=== PATIENT | female | born 1985 | race Caucasian/White ===

== ENCOUNTER 2020-09-13 17:34 | Outpatient (CLI) | payer OTHER, SELFPAY | END 2020-09-13 17:35 | disposition home or self-care (01) | LOC: ANHCOVIDVC 17:34 | PROVIDERS: PCP Family Medicine | DX: Z23 Encounter for immunization (principal) | CPT/HCPCS: 0001A; 91300 ==

== ENCOUNTER 2020-10-04 17:31 | Outpatient (CLI) | payer OTHER, SELFPAY | END 2020-10-04 17:32 | disposition home or self-care (01) | LOC: ANHCOVIDVC 17:32 | PROVIDERS: PCP Family Medicine | DX: Z23 Encounter for immunization (principal) | CPT/HCPCS: 0002A; 91300 ==

== ENCOUNTER 2024-11-04 11:18 | Outpatient (CLI) | payer OTHER, SELFPAY ==
--- NOTE | ~2024-11-04 | XR_ITS ---
EXAM: XR ankle RT min 3V DATE: 11/04/2024 11:31 HISTORY: M25.571 - Pain in right ankle and joints of right foot . COMPARISON: None available. FINDINGS: Normal mineralization. Cortical irregularity along the lateral aspect of the talus. Small ossific fragment at the tip of the malleolus. No lytic or blastic lesion. Mild degenerative change of the tibiotalar joint. Plantar enthesopathy. No erosion or periosteal change. Lateral and anterior so ft tissue swelling. Small ankle joint effusion. IMPRESSION: Small ossific fragment at the tip of the medial malleolus may come may represent an acute or chronic avulsion fracture. Cortical regularity along the lateral talus may represent an acute lateral talar process fracture. Reviewed, dictated and finalized at [facility]. IMPRESSION: Small ossific fragment at the tip of the medial malleolus may come may represen t an acute or chronic avulsion fracture. Cortical regularity along the lateral talus may represent an acute lateral obey r process fracture.
--- OUTSIDE RECORDS SUMMARY | 2024-11-04 12:47 | XMS_ITS | Encounter Summary ---
Author Organization [facility] Healthcare Address [address] [place] [address] Care Team Providers Care Towel Rolling Machine Operator Name Role Phone Troy Spivey MD Primary Care Provider [phone] [phone] Encounter Details Date Type Department Care Team (Late st Contact Info) Description 04/07/2024 [facility] [address] [place] [phone] Debo Jenkins MA Well woman exam (Primary Dx); Screening for human papillomavirus; Screening for cervical cancer Social History Tobacco Use Types Packs/Day Years Used Date Smoking Tobacco: Never Smokeless Tobacco: Never AUDIT-C Answer Date Recorded Q1: How often do you have a drink containing alc ohol? Monthly or less 02/27/2024 Q2: How many drinks containi ng alcohol do you have on a typical day when you are drinking? 1 or 2 02/27/2024 Q3: How often do you have si x or more drinks on one occasion? Less than monthly 02/27/2024 PHQ-2 Answer Date Recorded PHQ-2 Total Score (If total score is 3 or more points, staff should administer the PHQ-9) 0 09/18/2023 Comments No Sex and Gender Information Value Date Recorded Sex Assigned at Not on file Legal Sex Female 2:49 AM SENIOR ANALYTICAL CHEMIST Gender Identity Female 03/24/2021 7:40 PM CDT Sexual Orientation Straight 03/24/2021 7: 40 PM CDT documented as of this encounter Plan of Treatment Not on file documented as of this encounter Visit Diagnoses Diagnosis Well woman exam- Primary Routine general medical examination at a health care facility Screening for human papillomavirus Special screening examination for human papillomavirus (HPV) Screening for cervical cancer Screening for malignant neoplasm of the cervix documented in this encounter Care Teams Towel Rolling Machine Operator Relationship Specialty Start Date End Date Troy Spivey MD PCP - General Family Medicine 01/22/23 documented as of this encounter
--- OUTSIDE RECORDS SUMMARY | 2024-11-04 12:47 | XMS_ITS | Clinical Summary ---
Author Organization [facility] Address [address] [place] [address] Phone Care Team Providers Care Lab Specialist Name Role Phone Troy Spivey MD Primary Care Provider [phone] Allergies No known active allergies Medications topiramate (TOPAMAX) 50 mg tablet Take 50 mg by mouth daily. Active desogestrel-eth inyl estradiol (ISIBLOOM ORAL) Take by mouth. Active prednisoLONE (PRELONE) 15 mg/5 mL solution Take 5 mL by mouth daily. Active brimonidine-sabine olol (COMBIGAN) 0.2-0.5 % solution 1 Drop every 12 hours. Active timolol (TIMOPTIC-XE) 0.5 % Gel Forming Solution INSTILL 1 DROP IN RIGHT EYE EVERY DAY 03/07/2021 Active Active Problems No known active problems Encounters Date Type Department Care Team Description 10/21/2024 External Device Data [facility] ABSTRACTION Provider, Abstract 10/07/2024 External Device Data [facility] ABSTRACTION Provider, Abstract 10/07/2024 External Device Data [facility] ABSTRACTION Provider, Abstract 10/07/2024 External Device Data [facility] ABSTRACTION Provider, Abstract 09/17/2024 External Device Data [facility] ABSTRACTION Provider, Abstract 09/16/2024 External Device Data [facility] ABSTRACTION Provider, Abstract 09/13/2024 External Device Data [facility] ABSTRACTION Provider, Abstract 09/12/2024 External Device Data [facility] ABSTRACTION Provider, Abstract 09/09/2024 External Device Data [facility] ABSTRACTION Provider, Abstract 09/02/2024 External Device Data [facility] ABSTRACTION Provider, Abstract 09/02/2024 External Device Data [facility] ABSTRACTION Provider, Abstract from Last 3 Months Social History Tobacco Use Types Packs/Day Years Used Date Smoking Tobacco: Never Smokeless Tobacco: Never Alcohol Use Standard Drinks/Week Comments Yes 0 (1 standard drink = 0.6 oz pur e alcohol) socially Feeling Safe Answer Date Recorded Are you in a relationship wi th someone who hurts you emotionally and/or physically? No 07/10/2024 Comments No Sex and Gender Information Value Date Recorded Sex Assigned at Not on file Legal Sex Female 11:21 PM CDT Gender Identity Not on file Sexual Orientation Not on file Last Filed Vital Signs Vital Sign Reading Time Taken Comments Blood Pressure 128/76 07/10/2024 3:25 AM RN HOME CARE Pulse 77 07/10/2024 3:25 AM RN HOME CARE Temperature 36.4 C (97.5 F) 07/10/2024 12:43 AM RN HOME CARE Respiratory Rate 14 07/10/2024 3:25 AM RN HOME CARE Oxygen Saturation 100% 07/10/2024 3:25 AM RN HOME CARE Inhaled Oxygen Concentration - - Weight 90.7 kg (200 lb) 07/10/2024 12:43 AM RN HOME CARE Height 160 cm (5' 3 ) 07/10/2024 12:43 AM RN HOME CARE Body Mass Index 35.43 07/10/2024 12:43 AM RN HOME CARE Plan of Treatment Health Maintenance Due Date Last Done Comments Pre-Diabetes and Diabetes Screening 1987 DTAP/TDAP/TD VACCINES (1 - Tdap) 2006 HEPATITIS B VACCINES (1 of 3 - 19+ 3-dose series) 2006 HPV/Cotest (21-29) 2008 CERVICAL CANCER SCREENING 2017 HPV/Cotest (30-65) 2017 PAP SMEAR 2017 INFLUENZA VACCINE (#1) 2024 2, 05/01/2021 COVID-19 Vaccine (2023- season) 2024 06/26/2021, 10/04/2020, 09/13/2020 HPV VACCINES Aged Out No longer eligi ble based on patient's age to complete this topic Insurance [facility] Care Teams Lab Specialist Relationship Specialty Start Date End Date Troy Spivey MD PCP - General Family Practice 04/18/18
--- OUTSIDE RECORDS SUMMARY | 2024-11-04 12:47 | XMS_ITS | Referral Summary ---
Author Organization [facility] Address [address] [place] [address] Care Team Providers Care Electrician Helper Powerhouse Name Role Phone Troy Spivey MD Primary Care Provider [phone] Encounters Date Type Department Care Team Description 10/28/2024 [facility] [address] [place] [address] Spring Christiansen MD Leukocytosis, unspecified type (Primary Dx) 10/27/2024 Results [facility] at [address] [place] [address] Spring Christiansen MD 10/24/2024 3:30 PM CDT Lab [address] [place] [address] Abnormal uterine bleeding (AUB) 10/24/2024 3:15 PM CDT Office Visit [facility] [address] [place] [address] Spring Christiansen MD Abnormal uterine bleeding (AUB) (Primary Dx) 10/24/2024 2:00 PM CDT Clinical Support [facility] [address] [place] [address] Irregular menses (Primary Dx) 10/09/2024 Orders Only [facility] [address] [address] Spring Christiansen MD 09/24/2024 8:00 AM CDT Office Visit [facility] at [address] [place] [address] Johnie Olson MD Class 2 obesity due to excess calories without serious comorbidity with body mass index (BMI) of 35.0 to 35.9 in adult (Primary Dx) from Last 3 Months Allergies No known active allergies Medications rizatriptan SILVER MINER BLASTING (MAXALT-SILVER MINER BLASTING) 10 mg disintegrating tabletIndications :Migraine Take 1 tablet (10 mg total) by mouth once as needed for migraine May repeat in 2 hours if unresolved. Do not exceed 30 mg in 24 hours. 9 tablet 11 05/18/20 23 Active phentermine (ADIPEX-P) 37.5 mg tabletIndications :Class 2 obesity due to excess calories without serious comorbidity with body mass index (BMI) of 35.0 to 35.9 in adult Take 1 tablet (37.5 mg total) by mouth daily before breakfast 90 tablet 1 09/25/19 25 025 Active topiramate (TOPAMAX) 50 mg tabletIndications :Class 2 obesity due to excess calories without serious comorbidity with body mass index (BMI) of 35.0 to 35.9 in adult Take 1 tablet (50 mg total) by mouth 2 (two) times a day 60 tablet 2 09/25/19 25 025 Active medroxyPROGESTERo ne (PROVERA) 10 mg tablet Take 1 tablet (10 mg total) by mouth daily for 10 days 10 tablet 10/10/19 25 025 Discontinued Active Problems Problem Noted Date Diagnosed Date Other acquired deformities of left foot 06/09/20 24 Other acquired deformities of right foot 024 Valgus deformity of great toe 06/09/2024 Class 2 obesity due to exces s calories without serious comorbidity with body mass index (BMI) of 36.0 to 36.9 in adult 06/09/2024 Overview (06/09/2024): Chronic. Uncontrolled. Goal:under 200lb -> 160lb Cont. Phentermine. Recommend Sunday's Seminar. Dry eye syndrome of both eyes 10/23/2023 Assessment & Plan (10/23/2023 9:58 AM CDT): Rec pfats TID+, call if ni/worsening sx Abnormal weight gain 09/18/2023 Uveitis 01/17/2023 Assessment & Plan (07/30/2024 11:02 AM CHEMICAL LABORATORY CHIEF): Has been noticing some worsening vision and perhaps some achiness more profound in the right than the left over the past month or so. Examination appears fairly stable, color photographs again appear stable as well. Previously evaluated for uveitis, however systemic steroids have not change the course of her disease. 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 She was referred for evaluation at the [facility], who stated no available treatment or management options at this time. If symptoms are to worsen, she was told they can consider intravitreal steroid implant. She has some new symptoms however her exam is very reassuring. We discussed the possibility of proceeding with fluorescein angiography, but considering the reassuring exam is and color photography we have agreed observation today. I believe some of her symptoms are due to her cataract in the right eye, fortunately this is not impeding her activities of daily living at this time, and we have agreed observation. Regarding the achiness, she tried some preservative-free artificial tears, use them once a day, I have encouraged her to try using the preservative-free artificial tears more frequently perhaps every 2 hours or so to see if this brings her some relief. She was scheduled to return to see us in April, I have encouraged her to keep that scheduled appointment unless things change for the worse in any way. Assessment & Plan (04/10/2024 2:49 PM CDT): Previously evaluated for uveitis, however systemic steroids have not change the course of her disease. 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 She was referred for evaluation at the [facility], who stated no available treatment or management options at this time. If symptoms are to worsen, she was told they can consider intravitreal steroid implant. Given stability today, can continue to monitor at annual interval. Assessment & Plan (07/12/2023 3:38 PM CHEMICAL LABORATORY CHIEF): Previously evaluated for uveitis, however systemic steroids have not change the course of her disease. 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 At this point there was very little else I can do to improve the situation, recommend evaluation at the [facility]. 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 Initial visit here 01/17/23 for 2nd opinion FA 01/17/23: OD w/ significant RPE changes throughout the posterior pole in the right eye with some late small vessel leakage in the far periphery. Her repeat fluorescein angiography (FA) on 02/08/23 was stable and was unchanged on PO prednisone. We have since tapered her off of this and topical pred. She is on cosopt BID right eye (OD) for intraocular pressure (IOP) control. Repeated workup for panuveitis which has been negative (ANCA, RPR, treponemal Abs, TAMANNA, T-spot, HLA A29). Her ERG indicates moderate to severe marilin and cone function OD, and normal marilin and cone function left eye (OS). Will pursue genetic testing. 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 Initial visit here 01/17/23 for 2nd opinion FA 01/17/23: OD w/ significant RPE changes throughout the posterior pole in the right eye with some late small vessel leakage in the far periphery. Repeated workup for panuveitis which has been negative (ANCA, RPR, treponemal Abs, TAMANNA, T-spot, HLA A29) and she started 40mg PO prednisone 5 days ago. Today her FA remains stable. The angiogram appears unchanged on p.o. prednisone, I think 1 of 2 possibilities exist. First this could represent a inherited retinal disorder. Second this could represent vascular damage from previous bouts of uveitis that is now quiescent. I have recommended that she continue to wean off of p.o. and topical steroid. That she return to see us roughly 6 weeks time. Additionally, would proceed with ERG testing to rule out an inherited retinal disorder like picture. 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 States she had a workup for years ago, has been treated with topical drops, has required steroid tablets, and initially had a steroid injection. Here today for a 2nd opinion regarding her diagnosis of uveitis. Examination demonstrates a fairly quiet appearance however there is some mild RPE changes in the periphery. Angiography is striking in that there is significant RPE changes throughout the posterior pole in the right eye with some late small vessel leakage in the far periphery. Interestingly the left eye appears essentially normal. Recommended repeat the workup for sheehan uveitis, in the right eye. If negative, we will restart p.o. prednisone and repeat angiography in 2-3 weeks. Additionally, would proceed with ERG testing to rule out an inherited retinal disorder like picture. If responds to PO prednisone, we could consider systemic immunomodulation versus local therapy with retisert implant. Iritis, chronic 01/07/2021 Assessment & Plan (10/23/2023 9:58 AM CDT): No active inflammation, pt ed Morbid obesity with BMI of 45.0-49.9, adult 0 08/2020 Immunizations Immunization Administration Dates Next Due Influenza, Quadrivalent, Spl it, Preservative Free, Intramuscular 04/20/2022,05/01/2021 Influenza, Unspecified 06/09/2024(Deferr ed: Patient decision),09/18/2023(Deferred: Patient decision),05/28/2023(Deferred: Patient decision) Pfizer SARS-CoV-2 Monovalent Vaccination (12+ Yrs) PURPLE 06/26/2021,10/04/2020,09/13/2020 Social History Tobacco Use Types Packs/Day Years Used Date Smoking Tobacco: Never Smokeless Tobacco: Never Tobacco Cessation:Counseling Given: Not Answered AUDIT-C Answer Date Recorded Q1: How often do you have a drink containing alc ohol? Monthly or less 06/09/2024 Q2: How many drinks containi ng alcohol do you have on a typical day when you are drinking? 1 or 2 06/09/2024 Q3: How often do you have si x or more drinks on one occasion? Monthly 06/09/2024 PHQ-2 Answer Date Recorded PHQ-2 Total Score (If total score is 3 or more points, staff should administer the PHQ-9) 0 09/18/2023 Comments No Sex and Gender Information Value Date Recorded Sex Assigned at Not on file Legal Sex Female 2:49 AM CHEMICAL LABORATORY CHIEF Gender Identity Female 03/24/2021 7:40 PM CDT Sexual Orientation Straight 03/24/2021 7: 40 PM CDT Last Filed Vital Signs Vital Sign Reading Time Taken Comments Blood Pressure 122/76 10/24/2024 2:25 PM CDT Pulse 80 09/24/2024 7:57 AM CDT Temperature 36.1 C (97 F) 09/24/2024 7:57 AM CDT Respiratory Rate 18 09/24/2024 7:57 AM CDT Oxygen Saturation 99% 09/24/2024 7:57 AM CDT Inhaled Oxygen Concentration - - Weight 87.5 kg (193 lb) 10/24/2024 2:25 PM CDT Height 160 cm (5' 2.99 ) 10/24/2024 2:25 PM CDT Body Mass Index 34.2 10/24/2024 2:25 PM CDT Plan of Treatment Not on file Procedures Procedure Name Priority Date/Time Associated Diagnosis Comments CBC WITHOUT DIFFERENTIAL Routine 10/24/2024 3:15 PM CDT Abnormal uterine bleeding (AUB) THYROID FUNCTION CASCADE Routine 10/24/2024 3:15 PM CDT Abnormal uterine bleeding (AUB) FOLLICLE STIMULATING HORMONE Routine 10/24/2024 3:15 PM CDT Abnormal uterine bleeding (AUB) ESTRADIOL Routine 10/24/2024 3:15 PM CDT Abnormal uterine bleeding (AUB) TOTAL TESTOSTERONE Routine 10/24/2024 3: 15 PM CDT Abnormal uterine bleeding (AUB) PROLACTIN Routine 10/24/2024 3:15 PM CDT Abnormal uterine bleeding (AUB) US TRANSVAGINAL Schedule Routine, Read Routine (OP Routine) 10/24/2024 1:56 PM CDT Irregular menses HIGH RISK HPV DNA DETECTION WITH GENOTYPING Routine 04/08/2024 8:57 PM CDT Well woman exam with routine gynecological exam Screening for cervical cancer Screening for human papillomavirus from Last 3 Months or Most Recently Relevant to Health Maintenance Results * Thyroid Function Rock (10/24/2024 3:15 PM CDT) TSH 1.52 0.30 - 4.20 mcIUnit/mL Blood 10/24/2024 3:15 PM CDT 10/24/2024 7:03 PM CDT Spring Christiansen MD LAB BLOOD ORDERABLES F inal Result [facility] [address] Department [place] [address] * Prolactin (10/24/2024 3:15 PM CDT) Prolactin 16.400 4.790 - 23.300 ng/mL Blood 10/24/2024 3:15 PM CDT 10/24/2024 7:03 PM CDT us Spring Christiansen MD LAB BLOOD ORDERABLES F inal Result Performing Organization Address City/[facility]/ZIP Co de Phone Number [facility] [address] [facility] [place] [place] [address] * Estradiol (10/24/2024 3:15 PM CDT) [facility] Estradiol 27.4 pg/mL Comment: Interpretive Data Males: 11 43 pg/mL Females: Premenopausal: 31 533 pg/mL Postmenopausal: < 50 pg/mL Patients treated with Fluvestrant (Faslodex) should be tested using an alternate assay such as LC-MS due to potential for cross-reactivity. Estradiol varies widely throughout the menstrual cycle. Current interpretive data was last revised 2024. Blood 10/24/2024 3:15 PM CDT 10/24/2024 7:03 PM CDT Spring Christiansen MD LAB BLOOD ORDERABLES F inal Result Performing Organization Address [facility] Co de Phone Number [facility] [address] Department [place] [place] [address] * (ABNORMAL) CBC without differential (10/24/2024 3:15 PM CDT) [facility] WBC 10.95(H) 3.80 - 9.90 K/cumm Hgb 13.7 11.9 - 15.5 g/dL [facility] Hct 42.7 35.6 - 45.5 % [facility] Plt 262 150 - 400 K/cumm [facility] MPV 11.8 9.1 - 12.3 fL [facility] RBC 4.89 3.90 - 5.20 M/cumm [facility] MCV 87.3 81.3 - 96.4 fL [facility] MCH 28.0 27.1 - 33.3 pg [facility] MCHC 32.1(L) 32.3 - 35.7 g/dL [facility] RDW CV 14.3 11.1 - 14.9 % [facility] RDW SD 45.7 35.7 - 48.1 fL [facility] NRBC abs 0.00 0.00 - 0.01 K/cumm [facility] Blood 10/24/2024 3:15 PM CDT 10/24/2024 7:03 PM CDT Spring Christiansen MD LAB BLOOD ORDERABLES F inal Result Performing Organization Address [facility] Co de Phone Number [facility] [address] [place] [address] * Total testosterone (10/24/2024 3:15 PM CDT) Testosterone 15.90 8.40 - 48.10 ng/dL Blood 10/24/2024 3:15 PM CDT 10/24/2024 7:03 PM CDT Spring Christiansen MD LAB BLOOD ORDERABLES F inal Result Performing Organization Address [facility] de Phone Number [facility] [address] [place] [address] * Follicle stimulating hormone (10/24/2024 3:15 PM CDT) FSH 19.60 mIUnits/mL Comment: Interpretive Data Males: 1.5 - 12.4 mIUnits/mL Females: Follicular Phase: 3.5 - 12.5 mIUnits/mL Ovulatory Phase: 4.7 - 21.5 mIUnits/mL Luteal Phase: 1.7 - 7.7 mIUnits/mL Post-menopausal: 25.8 - 134 mIUnits/mL Current Interpretive Data was last revised on 2016. Blood 10/24/2024 3:15 PM CDT 10/24/2024 7:03 PM CDT Spring Christiansen MD LAB BLOOD ORDERABLES F inal Result Performing Organization Address [facility] Co de Phone Number [facility] [address] Department [place] [address] * US Transvaginal (10/24/2024 1:56 PM CDT) Anatomical Region Laterality Modality Pelvis N/A Ultrasound Spring Christiansen MD IM US PROCEDURES Edit ed Result - Final * High Risk HPV DNA Detection with Genotyping (Molecular component) (04/08/2024 8:57 PM CDT) HPV HR 16 Not Detected Not Detected HPV HR 18 Not Detected Not Detected [facility] HPV HR Non 16/18 Not Detected Not Detected [facility] Comment: Interpretive Data Nucleic acid amplification for detection of high-risk Human Papilloma virus (HPV) is performed by the Camilo Deepali 4800 HPV test, which specifically detects high-risk HPV-16, 18, 31, 33, 35, 39, 45, 51, 52, 56, 58, 59, 66, and 68 genotypes. This assay has been approved by the [place] Food and Drug Administration for detection of HPV in cervical specimens collected by a physician using an endocervical brush/spatula or cervical broom and placed in the ThinPrep Pap Test PreservCyt collection containers. The performance characteristics of this test have been verified by the [facility]. Correlate with separately reported cytology results, as applicable. Interpretive data last revised 23 Endocervical 04/08/2024 8:57 PM CDT 04/08/2024 8:58 PM CDT Narrative [facility] - 04/10/2024 10:07 PM CDT Clinical history and diagnosis->well woman Testing type->Screening Last menstrual period (date if known)->03/23/24 us Spring Christiansen MD LAB BODY FLUIDS AND ST OOLS ORDERABLES Final Result [facility] [address] Department [place] [address] from Last 3 Months or Most Recently Relevant to Health Maintenance Insurance [facility]S [facility] CLAIMS [facility] Care Teams Electrician Helper Powerhouse Relationship Specialty Start Date End Date Troy Spivey MD PCP - General Family Medicine 01/22/23
--- OUTSIDE RECORDS SUMMARY | 2024-11-04 12:47 | XMS_ITS | Encounter Summary ---
Author Organization [facility] Healthcare Address [address] [place] [address] Care Team Providers Care Machine Shop Worker Name Role Phone Troy Spivey MD Primary Care Provider [phone] Encounter Details Date Type Department Care Team (Late st Contact Info) Description 10/27/2024 Results [facility] [place] [address] [place] [phone] Spring Christiansen MD [address] [facility] [address] [place], [place] [id number] Social History Tobacco Use Types Packs/Day Years [...] on file Legal Sex Female 2:49 AM DIE DESIGNER APPRENTICE Gender Identity Female 03/24/2021 7:40 PM CDT Sexual Orientation Straight 03/24/2021 7: 40 PM CDT documented as of this encounter Plan of Treatment Not on file documented as of this encounter Visit Diagnoses Not on filedocumented in this encounter Care Teams Machine Shop Worker Relationship Specialty Start Date End Date Troy Spivey MD PCP - General Family Medicine 01/22/23 documented as of this encounter
--- OUTSIDE RECORDS SUMMARY | 2024-11-04 12:47 | XMS_ITS | Continuity of Care Document ---
Author Organization [facility] Address [address] [place] [address] Phone Care Team Providers Care Strategic Marketing Associate Name Role Phone Alen Jaffe MD Unavailable Unavailable Allergies, Adverse Reactions, Alerts Substance Reaction Status Criticality No Known Allergies Active No Inform ation Medications Medication Instructions Dosage Effective Dates (start - stop) Status Comments timolol maleate 0.5 % once daily eye drops instill 1 drop by ophthalmic route every day into affected eye(s) 1.00 drop - Active Procedures Procedure Date RADEX KNE 3 VIEWS OFFICE/OUTPATIENT VISIT NEW Advance Directives Directive Yes / No Effective Date File Name Other Directive No N/A N/A WARNING:The information contained in this section is historical and is provided for information only and does not constitute a legal document or any assurance that the information is still accurate. Please verify the information with the kowalski of the legal document before using it for clinical purposes. Encounters Encounter Description Practice Location Reason(s) For Visit Diagnoses Date Provider Providers Copied on Encounter OFFICE/OUTPA TIENT VISIT NEW [facility], [address], [place], [address], tel:[phone] [facility] Acute pain of right kneeBody mass index [BMI]40.0-44.9, adultChondromalac ia of right patella [place]. [address], [place], [place], [id number] . tel:[phone] Referring Provider: Troy Bledsoe, [address] [place], [place], [address] . tel:[phone] Family History Family Member Type Diagnosis Age At Onset Mother Problem Diabetes mellitus Father Problem Alive and well Payers Payer name Insurance type Covered alliance party ID Sue newell(enoch Fajardo OT [id number] Social History Type Description Quantity Date Captured Comments Alcohol Use Details No Caffeine Use Details Unknown Tobacco Use Status Current non-smoker Smoking Status Never smoker Non-Smoking Tobacco Use Details : No Details Available : No Details Available Sex Female Vital Signs Date / Time: Height Weight BMI Pulse Rate Blood Pressure Temperature Respiratory Rate Body Surface Area Head Circumference Head Circ. Percentile Wt./Jeyson. Percentile BMI percentile Pulse Ox Inhaled Ox 10:28 AM 63.00 in 113.398 kg (250.00 lbs) 44.2 9 kg/m eter (2) Chief Complaint And Reason For Visit No Information Reason For Referral Reason For Referral No Information Plan Of Treatment Date Type Action Status Goal Dietary management education , guidance, and counseling completed Referral Ordered: RADEX KNE 3 VIEWS RT ordered History Of Present Illness Encounter Date Complaint History Of Prese nt Illness No Information Functional Status Date Functional Assessmen t No Information Instructions Date Instruction Additional Infor mation Dietary management e ducation, guidance, and counseling Related to Body mass index [BMI] 40.0-44.9, adult Assessments Type Assessment Date assessment Acute pain of right knee 2020 assessment Body mass index [BMI] 40.0-44.9, adult assessment Chondromalacia of right patella Patient Care Teams Name Effective Dates (start - stop) Status Members No Information
--- OUTSIDE RECORDS SUMMARY | 2024-11-04 12:47 | XMS_ITS | Patient Health Record ---
Author Organization [facility] Address [address] [place] [address] Care Team Providers Care Production Control Scheduler Name Role Phone Troy Spivey M.D. Primary Care Provider Kay perlitaabiBay [place] Unavailable Allergies No Known Allergies Reason For Referral No Information Medications Medication SIG (Take, Route, Fr equency, Duration) Notes Start Date End Date Status Spironolactone Activ e Diclofenac Sodium 1 % as directed Topica l Apply no more than 4 grams to affected area of foot Q6-8 hours PRN Pain for 30 days 04/26/2022 Active Doxycycline Active Social History Tobacco Use: Social History Observation Description Date Details (start date - stop date) Never Smoker NA - NA Tobacco Use/Smoking Question Answer Notes Are you a nonsmoker Problems Problem Type SNOMED Code ICD Code Onset Dates Problem Status W/U Status Risk Notes Problem [id number] Hallux valgus of left foot (M20.12) Active confirmed Problem [id number] Hallux valgus of right foot (M20.11) Active confirmed Problem Pronation deformity of left foot (M21.6X2) Active confirmed Problem Pronation deformity of right foot (M21.6X1) Active confirmed Plan Of Treatment No Information Insurance Providers Payer Name Payer Address Payer Phone Subscriber Number Group Number Insured Name Patient Relationship to Insured Coverage Start Date Coverage End Date [facility] Claims [address] [place] [address] [phone] [id number] Eleazar Garcia Spouse - patient is the spouse of the insured Medical (General) History Medical History History ICD Code Migraines iritis Surgical History Surgery Date(Month/Year) vasovagal response to local L foot plantar fasciotomy
--- OUTSIDE RECORDS SUMMARY | 2024-11-04 12:47 | XMS_ITS | Clinical Summary ---
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 She was referred for evaluation at the [facility], who stated no available treatment or management [...] from retinitis pigmentosa - was seen a [facility] and they feel this test is a [place] and not related to her condition. She was referred for evaluation at the [facility], who stated no available treatment or management options at this time. If symptoms are to worsen, she was told they can consider intravitreal steroid implant. Given stability today, can continue to monitor at annual interval. Assessment & Plan (07/12/2023 3:38 PM DAIRY FEED MIXING OPERATOR): Previously evaluated for uveitis, however systemic steroids [...] improve the situation, recommend evaluation at the [facility]. Assessment & Plan (03/21/2023 11:58 AM CDT): [...] Morbid obesity with BMI of 45.0-49.9, adult 07/0 08/2020 Encounters Date Type Department Care Team Description 10/28/2024 Orders Only [facility] [address] [place] [address] Spring Christiansen MD Leukocytosis, unspecified type (Primary Dx) 10/27/2024 Results [facility]Up [facility] at [address] [place] [address] Spring Christiansen MD 10/24/2024 3:30 PM CDT Lab [address] [place] [address] Abnormal uterine bleeding (AUB) 10/24/2024 3:15 PM CDT Office Visit [facility] [address] [place] [address] Spring Christiansen MD Abnormal uterine bleeding (AUB) (Primary Dx) 10/24/2024 2:00 PM CDT Clinical Support [facility] at [address] [place] [address] Irregular menses (Primary Dx) 10/09/2024 Orders Only [facility] [address] [place] [address] Spring Christiansen MD 09/24/2024 8:00 AM CDT Office Visit [facility] at [address] [place] [address] Johnie Olson MD Class 2 obesity due to excess calories without serious comorbidity with body mass index (BMI) of 35.0 to 35.9 in adult (Primary Dx) from Last 3 Months Immunizations Immunization Administration Dates Next Due Influenza, Quadrivalent, Spl it, Preservative Free, Intramuscular 04/20/2022,05/01/2021 Influenza, Unspecified 06/09/2024(Deferr ed: Patient decision),09/18/2023(Deferred: Patient decision),05/28/2023(Deferred: Patient decision) Pfizer SARS-CoV-2 Monovalent Vaccination (12+ Yrs) PURPLE 06/26/2021,10/04/2020,09/13/2020 Surgical History Surgery Date Site/Laterality Comments PLANTAR FASCIA RELEASE 07/09/2015 - 07/08/2016 CATARACT EXTRACTION Left Medical History Medical History Date Comments Iritis Kidney stone Migraines Cataract 08/2019 Visual loss Family History Medical History Relation Name Comments Blindness Father Diabetes Father Migraines Father Diabetes Maternal Grandfather Florian Breast cancer Maternal Grandmother Azalea Cancer Maternal Grandmother Azalea Diabetes Mother Lanette No Known Problems Sister 2 Colon cancer Neg Hx Ovarian cancer Neg Hx Uterine cancer Neg Hx Relation Name Status Comments Father Alive Maternal Grandfather Florian Maternal Grandmother Azalea Mother Lanette Alive Sister 2 Alive Social History Tobacco Use Types Packs/Day Years [...] on file Legal Sex Female 2:49 AM DAIRY FEED MIXING OPERATOR Gender Identity Female 03/24/2021 7:40 PM CDT Sexual Orientation Straight 03/24/2021 7: 40 PM CDT Obstetrics History Para Term AB IAB SAB Ectopic Multiple Livin g Live Births 0 0 0 0 0 0 0 0 0 0 0 Last Filed Vital Signs Vital Sign Reading [...] 10/24/2024 2:25 PM CDT Plan of Treatment Health Maintenance Due Date Last Done Comments Hepatitis C Screening 1987 DTaP/Tdap/Td Vaccine (1 - Tdap) 1998 Varicella Vaccines (1 of 2 - 13+ 2-dose series) 2000 Hepatitis B Screening 2005 Covid-19 Vaccine ( season) 2024 06/26/2021, 10/04/2020, 09/13/2020 Depression Screening 09/17/2024 09/18/2023, 01/08/20 21 Influenza Vaccine (Season Ended) 2025 04/20/2022, 05/01/2021 Cervical Cancer Screening 04/08/20252023, 04/08/2024, 03/25/2021 Regular Well Visit/Exam 18-64 04/08/2025 04/08/2024, 04/02/2023, 03/27/2022, Additional history exists HPV Vaccines Aged Out No longer eligi ble based on patient's age to complete this topic Pneumococcal vaccine <65 Aged Out No longer eligible based on patient's age to complete this topic Procedures Procedure Name Priority Date/Time Associated Diagnosis [...] to Health Maintenance Results * Thyroid Function [place] (10/24/2024 3:15 PM CDT) Pathologist [facility] TSH 1.52 0.30 - 4.20 mcIUnit/mL Blood 10/24/2024 3:15 PM CDT 10/24/2024 7:03 PM CDT Spring Christiansen MD LAB BLOOD ORDERABLES F inal Result Performing Organization Address City/[facility]/ZIP Co de Phone Number [facility] [address] [employer] [place], [place] [phone] * Prolactin (10/24/2024 3:15 PM CDT) Pathologist [facility] Prolactin 16.400 4.790 - 23.300 ng/mL Blood 10/24/2024 3:15 PM CDT 10/24/2024 7:03 PM CDT Spring Christiansen MD LAB BLOOD ORDERABLES F inal Result Performing Organization Address City/[facility]/ZIP Co de Phone Number [facility] [address] [employer] [place], [place] [phone] * Estradiol (10/24/2024 3:15 PM CDT) Pathologist [facility] Estradiol 27.4 pg/mL Comment: Interpretive Data Males: [...] ORDERABLES F inal Result Performing Organization Address City/[facility]/ZIP Co de Phone Number [facility] [address] [place] [address] * (ABNORMAL) CBC without differential (10/24/2024 3:15 PM CDT) WBC 10.95(H) 3.80 - 9.90 K/cumm Hgb 13.7 11.9 - 15.5 g/dL [facility] Hct 42.7 35.6 - 45.5 % [facility] Plt 262 150 - 400 K/cumm [facility] MPV 11.8 9.1 - 12.3 fL [facility] RBC 4.89 3.90 - 5.20 M/cumm [facility] MCV 87.3 81.3 - 96.4 fL [facility] MCH 28.0 27.1 - 33.3 pg [facility] MCHC 32.1(L) 32.3 - 35.7 g/dL [facility] RDW CV 14.3 11.1 - 14.9 % [facility] RDW SD 45.7 35.7 - 48.1 fL [facility] NRBC abs 0.00 0.00 - 0.01 K/cumm [facility] Blood 10/24/2024 3:15 PM CDT 10/24/2024 7:03 PM CDT us Spring Christiansen MD LAB BLOOD ORDERABLES F inal Result [facility] [address] [facility] [place] [address] * Total testosterone (10/24/2024 3:15 PM CDT) Testosterone 15.90 8.40 - 48.10 ng/dL Blood 10/24/2024 3:15 PM CDT 10/24/2024 7:03 PM CDT Spring hCristiansen MD LAB BLOOD ORDERABLES F inal Result Performing Organization Address [facility] Co de Phone Number [facility] [address] [employer] [place], [place] [phone] * Follicle stimulating hormone (10/24/2024 3:15 PM [...] ORDERABLES F inal Result Performing Organization Address [facility] Co de Phone Number [facility] [address] [facility] [employer] [place], [place] [phone] * US Transvaginal (10/24/2024 1:56 PM CDT) Anatomical Region Laterality Modality Pelvis N/A Ultrasound Spring Christiansen MD IMG US PROCEDURES Edit ed Result - Final * High Risk HPV DNA Detection with Genotyping (Molecular component) (04/08/2024 8:57 PM CDT) HPV HR 16 Not Detected Not Detected HPV HR 18 Not Detected Not Detected [facility] HPV HR Non 16/18 Not Detected Not Detected [facility] Comment: Interpretive Data Nucleic acid [...] this test have been verified by the [facility]. Correlate with separately reported cytology results, as applicable. Interpretive data last revised 23 Endocervical 04/08/2024 8:57 PM CDT 04/08/2024 8:58 PM CDT Narrative [facility] - 04/10/2024 10:07 PM CDT Clinical history and diagnosis->well woman Testing type->Screening Last menstrual period (date if known)->03/23/24 us Spring Christiansen MD LAB BODY FLUIDS AND ST OOLS ORDERABLES Final Result [facility] [address] Department [place] [address] from Last 3 Months or Most Recently Relevant to Health Maintenance Insurance [facility]S [facility] Care Teams Client Advisor Relationship Specialty Start Date End Date Troy Spivey MD PCP - General Family Medicine 01/22/23
== END 2024-11-04 11:19 | disposition home or self-care (01) ==
LOC: ANHASCIMG 11:21
PROVIDERS: PCP Family Medicine; Visit Provider Nurse Practitioner Family
DX: S82.54XA Nondisplaced fracture of medial malleolus of right tibia, initial encounter for closed fracture (principal); X58.XXXA Exposure to other specified factors, initial encounter; M89.8X7 Other specified disorders of bone, ankle and foot
CPT/HCPCS: 73610